=== PATIENT | male | born 1995 | race Asian ===

== ENCOUNTER 2024-10-05 15:09 | Inpatient (IN) | payer OTHER ==
[~2024-10-05] VITALS: Ht 170.2 cm; Wt 75.2 kg
[2024-10-05 16:12] LABS: HEMATOCRIT 43.9 % (42.0-52.0); HEMOGLOBIN 15.4 g/dl (13.5-17.5); MEAN CORPUSCULAR HEMOGLOBIN 33.5 pg (27.0-33.0); MEAN CORPUSCULAR HGB CONC 35.1 g/dl (32.0-36.5); MEAN CORPUSCULAR VOLUME 95.4 fl (80.0-96.0); PLATELET COUNT, AUTOMATED 294 10^3/uL (150-450); WHITE BLOOD COUNT 7.7 10^3/uL (4.0-10.0)
[2024-10-05 16:35] LABS: AMPHETAMINES LEVEL URINE NEGATIVE (NEGATIVE); BARBITURATES URINE NEGATIVE (NEGATIVE); BENZODIAZEPINES URINE NEGATIVE (NEGATIVE); CANNABINOIDS URINE NEGATIVE (NEGATIVE); COCAINE METABOLITE URINE NEGATIVE (NEGATIVE); METHADONE URINE NEGATIVE (NEGATIVE); OPIATES URINE NEGATIVE (NEGATIVE); PHENCYCLIDINE URINE NEGATIVE (NEGATIVE)
[2024-10-05 16:37] LABS: ETHYL ALCOHOL (ETHANOL) < 0.003 % (0.000-0.010)
[2024-10-05 16:39] LABS: SALICYLATE LEVEL < 3.0 MG/DL (<30)
[2024-10-05 16:40] LABS: ALBUMIN 4.4 G/DL (3.2-5.2); ALKALINE PHOSPHATASE 62 U/L (40-129); ALT/SGPT 36 U/L (7.0-40); AST/SGOT 18 U/L (<34); BILIRUBIN,DIRECT 0.3 MG/DL (<0.4); BILIRUBIN,TOTAL 0.9 MG/DL (0.3-1.2); BLOOD UREA NITROGEN 13 MG/DL (9-23); CALCIUM LEVEL 9.2 MG/DL (8.5-10.1); CARBON DIOXIDE LEVEL 27 MMOL/L (20-31); CHLORIDE LEVEL 103 MMOL/L (98-107); CREATININE FOR GFR 1.01 MG/DL (0.70-1.30); GLOMERULAR FILTRATION RATE > 90.0 (>60); GLUCOSE, FASTING 105 MG/DL (60-100); POTASSIUM SERUM 4.1 MMOL/L (3.5-5.1); SODIUM LEVEL 139 MMOL/L (136-145); TOTAL PROTEIN 7.4 G/DL (5.7-8.2)
[2024-10-05 16:43] LABS: THYROID STIMULATING HORMONE 2.104 uIU/ML (0.55-4.78)
[2024-10-05] MEDS ORDERED: MED REC IN PROGRESS XX SCH (19:10)
[2024-10-05] MEDS ORDERED: ACETAMINOPHEN 325 MG TAB PO PRN (22:00)
[2024-10-05] MEDS ORDERED: traZODone 50 MG TAB PO PRN (22:00)
[2024-10-05] MEDS ORDERED: MOM 30ML SUSPENSION UDC PO PRN (22:00)
[2024-10-05] MEDS ORDERED: MAALOX 30 ML SUSP *UDC PO PRN (22:00)
[2024-10-05] MEDS ORDERED: diphenhydrAMINE 25MG CAP PO PRN (22:00)
[2024-10-05] MEDS ORDERED: IBUPROFEN 400MG TAB PO PRN (22:00)
[2024-10-05 23:00] VITALS: BP 133/86; TEMP 97.2; O2SAT 100
[2024-10-06 06:31] VITALS: BP 123/74; TEMP 97.7; O2SAT 100
[2024-10-06] MEDS ORDERED: CYCL-707 PO (07:48)
[2024-10-06] MEDS ORDERED: NAPR-885 PO (07:48)
[2024-10-06] MEDS ORDERED: HOME MED LIST COMPLETE! XX SCH (07:50)
[2024-10-06] MEDS ORDERED: NICOTINE 7 MG/24 HR TRANSDERMAL TD PRN (13:50)
[2024-10-06 14:44] VITALS: BP 136/80; TEMP 98.5; O2SAT 100
[2024-10-06] MEDS: ESCITALOPRAM OXALATE 10 MG TAB (LEXAPRO) PO SCH (21:45)
[2024-10-07 06:27] VITALS: BP 132/60; TEMP 97.8; O2SAT 99
[2024-10-08 06:40] VITALS: BP 111/77; TEMP 97.8; O2SAT 99
[2024-10-08 15:43] VITALS: BP 125/71; TEMP 97.5; O2SAT 98
[2024-10-09 06:29] VITALS: BP 120/88; TEMP 97.2; O2SAT 98
[2024-10-09 15:55] VITALS: BP 121/64; TEMP 98; O2SAT 99
[2024-10-10 06:30] VITALS: BP 119/58; TEMP 97.4; O2SAT 100
[2024-10-10 16:02] VITALS: BP 128/70; TEMP 97.4; O2SAT 99
[2024-10-11 06:39] VITALS: BP 132/70; TEMP 97; O2SAT 99
[2024-10-11] MEDS ORDERED: LEXA1TAB PO (09:37)
== END 2024-10-11 11:16 | disposition home or self-care (01) | DRG 885 ==
LOC: EDBD 15:09 → M ED 15:09 → M ED INP 21:59 → M PSY 22:44
PROVIDERS: ADMIT Student in an Organized Health Care Education/Training Program; ATTEND Student in an Organized Health Care Education/Training Program
DX: F32.1 Major depressive disorder, single episode, moderate (principal); R45.851 Suicidal ideations; F41.1 Generalized anxiety disorder; F17.210 Nicotine dependence, cigarettes, uncomplicated; M54.59 Other low back pain; Z79.899 Other long term (current) drug therapy

== ENCOUNTER → 2024-12-02 | Outpatient (CLI) | payer OTHER ==
[~2024-12-02] MED LIST: CYCL-707 PO; ISOVUE-370 76% 100 ML VIAL As Ordered ONE; LEXA1TAB PO; NAPR-885 PO
== END ==
LOC: M RAD 15:30
DX: Q61.9 Cystic kidney disease, unspecified (principal); K76.0 Fatty (change of) liver, not elsewhere classified; K76.89 Other specified diseases of liver; K63.89 Other specified diseases of intestine
CPT/HCPCS: 74170; Q9967

== ENCOUNTER → 2025-03-09 | Outpatient (CLI) | payer OTHER ==
[~2025-03-09] MED LIST changes: -ISOVUE-370 76% 100 ML VIAL As Ordered ONE; +PROHANCE 279.3MG/ML 15ML VIAL ONE
== END ==
LOC: M PLAIMG 07:11
PROVIDERS: ATTEND Physician Assistant
DX: N28.1 Cyst of kidney, acquired (principal)
CPT/HCPCS: 74183; A9576